=== PATIENT | female | born 1990 | race Caucasian/White ===

== ENCOUNTER 2022-08-14 14:14 | Outpatient (REF) | payer OTHER, SELFPAY ==
[2022-08-14 16:38] LABS: Chloride* 104 mmol/L (96-114); Sodium* 143 mmol/L (135-149)
[2022-08-14 16:39] LABS: Potassium* 4.3 mmol/L (3.6-5.1)
[2022-08-14 16:41] LABS: Carbon Dioxide* 26 mmol/L (20-32); Creatinine* 1.2 mg/dL (0.5-1.5); Estimated Glomerular Filt Rate 62 ml/min
[2022-08-14 16:42] LABS: Blood Urea Nitrogen* 13 mg/dL (5-24); Glucose* 109 mg/dL (60-115)
[2022-08-16 13:35] LABS: Lithium, Serum or Plasma 0.6 mmol/L (0.5-1.2)
== END 2022-08-14 14:15 | disposition home or self-care (01) ==
LOC: NPINS 14:14
PROVIDERS: PCP Physician Assistant Medical; Visit Provider Physician Assistant
DX: Z79.899 Other long term (current) drug therapy (principal); F31.70 Bipolar disorder, currently in remission, most recent episode unspecified
CPT/HCPCS: 80048; 80178; 84439; 84443

== ENCOUNTER 2023-09-23 15:46 | Outpatient (CLI) | payer OTHER, SELFPAY | END 2023-09-23 15:47 | disposition home or self-care (01) | LOC: LKVREF 15:47 | PROVIDERS: PCP Physician Assistant Medical; Visit Provider Physician Assistant Medical | DX: E03.9 Hypothyroidism, unspecified (principal) | CPT/HCPCS: 84439; 84443 ==

== ENCOUNTER 2024-09-19 16:22 | Outpatient (CLI) | payer OTHER, SELFPAY | END 2024-09-19 16:23 | disposition home or self-care (01) | PROVIDERS: PCP Physician Assistant Medical; Visit Provider Physician Assistant Medical | DX: D64.9 Anemia, unspecified (principal); E03.9 Hypothyroidism, unspecified | CPT/HCPCS: 82607; 82728; 83540; 84443 ==

== ENCOUNTER 2024-11-21 08:58 | Outpatient (CLI) | payer OTHER, SELFPAY | END 2024-11-21 08:59 | disposition home or self-care (01) | LOC: NFLDREF 11-25 03:02 | PROVIDERS: PCP Physician Assistant Medical; Visit Provider Physician Assistant Medical | DX: D64.9 Anemia, unspecified (principal); D51.9 Vitamin B12 deficiency anemia, unspecified | CPT/HCPCS: 82607; 82728; 82746; 83540; 83550; 86231; 86258; 86364 ==